=== PATIENT | female | born 1985 | race Caucasian/White ===

== ENCOUNTER 2016-06-28 16:43 | Emergency (ER) | payer SELFPAY ==
[~2016-06-28 16:43] MED LIST: HYDR-3533 PO; PROZ20CA11 PO
[2016-06-28 16:45] VITALS: BP 132/62; PULSE 88; RESP 12; TEMP 98.4; O2SAT 100
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
== END 2016-06-28 19:16 | disposition left against medical advice (07) ==
LOC: NEPB 16:43
DX: M79.641 Pain in right hand (principal)
CPT/HCPCS: 99281